=== PATIENT | male | born 1975 | race Caucasian/White ===

== ENCOUNTER 2018-08-28 11:39 | Inpatient (IN) | payer MEDICAID ==
[~2018-08-28] VITALS: Ht 188 cm; Wt 135.2 kg
[2018-08-28 13:16] LABS: CALCIUM 9.1 mg/dL (8.5-10.1); CARBON DIOXIDE 27.6 mmol/L (21-32); CHLORIDE SERUM 100 mmol/L (98-107); CREATININE SERUM 0.7 mg/dL (0.7-1.3); GFR1 > 60 mL/min; GLUCOSE SERUM 103 mg/dL (74-106); POTASSIUM SERUM 4.1 mmol/L (3.5-5.1); SODIUM SERUM 137 mmol/L (136-145)
[2018-08-28 13:21] LABS: ALKALINE PHOSPHATASE 77 U/L (46-116); ALT/SGPT 57 U/L (16-63); AST/SGOT 34 U/L (15-37); BILIRUBIN TOTAL 0.4 mg/dL (0.20-1.00); LIPASE 157 IU/L (73-393); MAGNESIUM 2.4 mg/dL (1.8-2.4)
[2018-08-28 13:27] LABS: BASOPHIL % 0.4 % (0-2)
[2018-08-28 13:28] LABS: PLATELET COUNT 417 x10^3mcL (130-400); RED CELL DISTRIBUTION WIDTH 17.4 % (11.5-14.5)
[2018-08-28 13:30] LABS: TOTAL PROTEIN, SERUM 8.6 g/dL (6.4-8.2)
[2018-08-28 15:37] LABS: AMPHETAMINE QUAL UR NONE DETECTED (See below)
[2018-08-28 16:36] LABS: T3 TOTAL 0.88 ng/mL
[2018-08-28 16:38] LABS: PHOSPHOROUS 3.6 mg/dL (2.5-4.9)
[2018-08-28 16:41] VITALS: BP 156/79
[2018-08-28 17:17] LABS: FREE T4 0.9 ng/dL (0.76-1.46); FREE THYROXINE INDEX 2.2 ug/dL (1.4-4.5); T4(THYROXINE) 6.9 ug/dL (4.7-13.3)
[2018-08-28 18:48] LABS: microscopic required? NO
[2018-08-28 19:10] VITALS: BP 143/84
[2018-08-28 19:31] LABS: UA SPECIFIC GRAVITY <=1.005 (1.005-1.035); urine erythrocyte NEGATIVE (NEGATIVE)
[2018-08-29 05:46] LABS: BASOPHIL % 0.4 % (0-2); PLATELET COUNT 353 x10^3mcL (130-400)
[2018-08-29 05:55] VITALS: BP 128/83
[2018-08-29 06:05] LABS: RED CELL DISTRIBUTION WIDTH 17.9 % (11.5-14.5)
[2018-08-29 06:23] LABS: CALCIUM 8.8 mg/dL (8.5-10.1); CARBON DIOXIDE 29.3 mmol/L (21-32); CHLORIDE SERUM 102 mmol/L (98-107); CREATININE SERUM 0.9 mg/dL (0.7-1.3); GFR1 > 60 mL/min; GLUCOSE SERUM 129 mg/dL (74-106); MAGNESIUM 2.2 mg/dL (1.8-2.4); POTASSIUM SERUM 4.3 mmol/L (3.5-5.1); SODIUM SERUM 138 mmol/L (136-145)
[2018-08-29 09:41] VITALS: BP 133/84
[2018-08-29 13:22] VITALS: BP 141/92
[2018-08-29 15:46] VITALS: BP 144/82
[2018-08-29 21:07] VITALS: BP 147/92
[2018-08-30 06:27] LABS: CALCIUM 8.7 mg/dL (8.5-10.1); CARBON DIOXIDE 29.5 mmol/L (21-32); CHLORIDE SERUM 103 mmol/L (98-107); CREATININE SERUM 0.8 mg/dL (0.7-1.3); GFR1 > 60 mL/min; GLUCOSE SERUM 103 mg/dL (74-106); MAGNESIUM 1.9 mg/dL (1.8-2.4); PHOSPHOROUS 4.7 mg/dL (2.5-4.9); SODIUM SERUM 135 mmol/L (136-145)
[2018-08-30 06:45] VITALS: BP 142/73
[2018-08-30 07:00] LABS: BASOPHIL % 0.4 % (0-2); PLATELET COUNT 291 x10^3mcL (130-400)
[2018-08-30 07:01] LABS: RED CELL DISTRIBUTION WIDTH 16.9 % (11.5-14.5)
[2018-08-30 13:31] VITALS: BP 146/85
[2018-08-30 17:49] VITALS: BP 139/90
[2018-08-30 20:42] VITALS: BP 105/72
[2018-08-31 05:26] VITALS: BP 119/85
[2018-08-31 06:56] LABS: BASOPHIL % 0.3 % (0-2); PLATELET COUNT 298 x10^3mcL (130-400)
[2018-08-31 07:00] LABS: RED CELL DISTRIBUTION WIDTH 17.1 % (11.5-14.5)
[2018-08-31 07:16] LABS: CALCIUM 8.8 mg/dL (8.5-10.1); CARBON DIOXIDE 28.5 mmol/L (21-32); CHLORIDE SERUM 104 mmol/L (98-107); CREATININE SERUM 0.8 mg/dL (0.7-1.3); GFR1 > 60 mL/min; GLUCOSE SERUM 98 mg/dL (74-106); PHOSPHOROUS 4.1 mg/dL (2.5-4.9); POTASSIUM SERUM 3.9 mmol/L (3.5-5.1); SODIUM SERUM 139 mmol/L (136-145)
[2018-08-31 09:20] VITALS: BP 138/84
[2018-08-31] MEDS ORDERED: ANTABUSE250 MG PO (09:57)
[2018-08-31] MEDS ORDERED: PROTONIX TR40 M1 PO (09:57)
[2018-08-31 11:10] VITALS: BP 138/84
== END 2018-08-31 12:39 | disposition home or self-care (01) | DRG 52 ==
LOC: ED 11:39 → MU 15:40 → DU 15:40 → MU 16:26 → DU 16:36
PROVIDERS: Emergency Medicine; Family Medicine; Internal Medicine; Internal Medicine Gastroenterology
PROC: 0DJ08ZZ Inspection of Upper Intestinal Tract, Via Natural or Artificial Opening Endoscopic (ICD-10-PCS; principal; 2018-08-30 09:00)
DX: G92 Toxic encephalopathy (principal); E87.2 Acidosis; E87.1 Hypo-osmolality and hyponatremia; K29.20 Alcoholic gastritis without bleeding; F10.10 Alcohol abuse, uncomplicated; E78.00 Pure hypercholesterolemia, unspecified; K21.0 Gastro-esophageal reflux disease with esophagitis; Y90.3 Blood alcohol level of 60-79 mg/100 ml; F32.9 Major depressive disorder, single episode, unspecified; F17.210 Nicotine dependence, cigarettes, uncomplicated; Z68.1 Body mass index [BMI] 19.9 or less, adult
CPT/HCPCS: 43235; 83880; 84439; 90658; C9113; G0480; J1200; J1610; J2060; J2250; J2310; J2405; J2550; J3010; J3490; J7030; Q0092